=== PATIENT | male | born 1960 | race Hispanic/Latino ===

== ENCOUNTER 2019-02-08 13:59 | Outpatient (RCR) | payer OTHER | END 2019-02-17 | LOC: WCC 13:59 | PROVIDERS: ATTEND Family Medicine Adult Medicine | DX: E11.69 Type 2 diabetes mellitus with other specified complication (principal); E11.65 Type 2 diabetes mellitus with hyperglycemia; E11.621 Type 2 diabetes mellitus with foot ulcer; L97.821 Non-pressure chronic ulcer of other part of left lower leg limited to breakdown of skin; L97.511 Non-pressure chronic ulcer of other part of right foot limited to breakdown of skin; S81.002A Unspecified open wound, left knee, initial encounter; I70.248 Atherosclerosis of native arteries of left leg with ulceration of other part of lower leg; R60.9 Edema, unspecified; N18.6 End stage renal disease; I10 Essential (primary) hypertension; I70.263 Atherosclerosis of native arteries of extremities with gangrene, bilateral legs; X58.XXXA Exposure to other specified factors, initial encounter | CPT/HCPCS: 36415; 82948; 87071; 87075; 87186; 87205 ==

== ENCOUNTER → 2019-04-24 | Outpatient (CLI) | payer MEDICARE, OTHER ==
[~2019-04-24] MED LIST: ACETAMINOPHEN325 M1 PO; AMIODARONE HCL200 MG PO; ASPIRIN EC81 MG PO; ATORVASTATIN CA10 MG PO; BENADRYL ITCH28.3 G2 TOP; CALCITRIOL0.25 MCG PO; CALCIUM ACETAT667 M1 PO; COLACE100 MG PO; ELIQUIS5 M1 PO; FAMOTIDINE20 MG PO; GABAPENTIN300 MG PO; HEPARIN SO1000 UNIT1 IV; ISOSORBIDE MONO20 MG PO; LANTUS 3ML100 UNITS/ SQ; LIDOCAINE HCL 1% LOCAL INJ 20 ML VIAL ONE; MERREM500 MG IV; NOVOLOG100 UNIT/1 SQ; Ondansetron Oral Disintegratin PO; RENVELA800 MG PO; SYNTHROID50 MCG PO; ULTRAM 50MG50 MG PO; VANCOMYCIN HCL1 GM IV
--- NOTE | 2019-04-24 11:26 | Diagnostic Imaging Report ---
PROCEDURE: Tunneled central venous catheter removal Procedural Personnel Attending physician(s): Byron Alba MD Fellow physician(s): None Resident physician(s): None Advanced practice provider(s): None Pre-procedure diagnosis: Cellulitis Post-procedure diagnosis: Same Indication: Catheter no longer needed Additional clinical history: None Complications: No immediate complications. IMPRESSION: Removal of left-sided tunneled central venous catheter. Plan: Please re-consult interventional radiology if new catheter placement is desired. PROCEDURE SUMMARY: - Tunneled central venous catheter removal - Additional procedure(s): None PROCEDURE DETAILS: Pre-procedure Consent: Informed consent for the procedure including risks, benefits and alternatives was obtained and time-out was performed prior to the procedure. Preparation: The site was prepared and draped using maximal sterile barrier technique including cutaneous antisepsis. Anesthesia/sedation Level of anesthesia/sedation: No sedation Anesthesia/sedation administered by: Not applicable Catheter removal The catheter was removed with a combination of traction and blunt dissection. Closure Hemostasis was achieved with manual compression. Sterile dressing(s) applied. Radiation Dose None Additional Details Additional description of procedure: None Equipment details: None Specimens removed: Tunneled central venous catheter. Estimated blood loss (mL): Less than 10 Standardized report: [email or web address] Attestation Signer name: Byron Alba MD I attest that I was present for the entire procedure. I reviewed the stored images and agree with the report as written. Signed by: Byron Alba MD on 04/24/2019 11:23 AM
== END ==
LOC: DX 09:09
PROVIDERS: ATTEND Internal Medicine
DX: Z43.8 Encounter for attention to other artificial openings (principal)
CPT/HCPCS: 36589; J2001